=== PATIENT | male | born 1985 | race Caucasian/White ===

== ENCOUNTER 2021-04-04 10:15 | Emergency (ER) | payer OTHER ==
[~2021-04-04] VITALS: Ht 172.7 cm; Wt 83.0 kg
[2021-04-04] MEDS ORDERED: ONDANSETRON 4 MG/2 ML VIAL ONE (11:05)
[2021-04-04] MEDS: IV NORMAL SALINE 500 ML BAG IV ONE (11:07)
[2021-04-04] MEDS: ONDANSETRON 4 MG/2 ML VIAL IV ONE (11:08)
--- NOTE | 2021-04-04 11:09 | NUR ---
PT IS IN ROOM #2B. DR PICKERING EVALUATED THE PT.
[2021-04-04 11:12] LABS: HEMATOCRIT 44.1 % (36.7-47.1); MEAN CORPUSCULAR HEMOGLOBIN 30.2 uug (23.8-33.4); MEAN CORPUSCULAR VOLUME 89.3 fL (73.0-96.2); PLATELET COUNT (AUTO) 228 K/uL (152-348)
[2021-04-04 11:23] LABS: BILIRUBIN,TOTAL 0.9 mg/dL (0.2-1.0); POTASSIUM 4.6 mmol/L (3.5-5.1); TOTAL PROTEIN, SERUM 8.3 g/dL (6.4-8.2)
[2021-04-04 12:09] VITALS: BP 125/81
--- NOTE | 2021-04-04 12:09 | NUR ---
IV removed. Catheter intact and site benign. Pressure and 4x4 gauze applied to site. No bleeding noted.
--- NOTE | 2021-04-04 12:09 | NUR ---
Patient discharged to home in stable condition. Written and verbal after care instructions given. Patient verbalizes understanding of instructions. Stressed follow up or return to ER for worsening s/s.
== END 2021-04-04 12:10 | disposition home or self-care (01) ==
LOC: ER 10:15
DX: K52.9 Noninfective gastroenteritis and colitis, unspecified (principal); Z88.0 Allergy status to penicillin
CPT/HCPCS: 36415; 80053; 83690; 85025; 96361; 96374; 99284; J2405; A4663; J7030